=== PATIENT | male | born 1960 | race Caucasian/White ===

== ENCOUNTER → 2017-07-04 | Outpatient (CLI) | payer OTHER ==
[~2017-07-04] MED LIST: OMNIPAQUE 350 MG/ML, 100ML BOTTLE ONE
== END | disposition home or self-care (01) ==
LOC: RAD 15:57
PROVIDERS: ATTEND Student in an Organized Health Care Education/Training Program
DX: R22.1 Localized swelling, mass and lump, neck (principal)
CPT/HCPCS: 36415; 70491; 82565; Q9967

== ENCOUNTER 2018-07-21 09:04 | Emergency (ER) | payer OTHER ==
[~2018-07-21] VITALS: Ht 180.3 cm; Wt 101.6 kg
[2018-07-21 09:15] VITALS: BP 140/76
== END 2018-07-21 10:04 | disposition home or self-care (01) ==
LOC: ED 09:57
DX: E78.5 Hyperlipidemia, unspecified (principal); Z76.0 Encounter for issue of repeat prescription
CPT/HCPCS: 99283

== ENCOUNTER 2019-05-14 11:49 | Emergency (ER) | payer OTHER ==
[~2019-05-14] VITALS: Ht 180.3 cm; Wt 112.4 kg
[2019-05-14 11:51] VITALS: BP 152/70
== END 2019-05-14 13:00 ==
LOC: ED 12:54
DX: M25.511 Pain in right shoulder (principal)
CPT/HCPCS: 99283

== ENCOUNTER 2019-05-21 16:24 | Emergency (ER) | payer OTHER ==
[~2019-05-21] VITALS: Ht 180.3 cm; Wt 110.9 kg
[2019-05-21 16:45] VITALS: BP 153/72
== END 2019-05-21 17:20 | disposition home or self-care (01) ==
LOC: ED 16:55
DX: G89.29 Other chronic pain (principal); M25.511 Pain in right shoulder
CPT/HCPCS: 29105; 96372; 99283; J1885

== ENCOUNTER 2019-08-08 07:05 | Outpatient (CLI) | payer OTHER ==
[~2019-08-08 07:05] MED LIST changes: +LOVA20TA2 PO; -OMNIPAQUE 350 MG/ML, 100ML BOTTLE ONE
== END 2019-08-08 23:59 | disposition home or self-care (01) ==
LOC: CFH 07:05
PROVIDERS: ATTEND Nurse Practitioner Critical Care Medicine
DX: M47.9 Spondylosis, unspecified (principal); M50.20 Other cervical disc displacement, unspecified cervical region; F17.200 Nicotine dependence, unspecified, uncomplicated; M50.30 Other cervical disc degeneration, unspecified cervical region
CPT/HCPCS: 72040; 72141

== ENCOUNTER → 2019-08-24 | Outpatient (CLI) | payer OTHER ==
[~2019-08-24] MED LIST changes: +LOVA10TA PO; +NAPR220C2 PO
[2019-08-24 11:18] LABS: BASOPHILS # (AUTO) 0.07 x10^3/uL (0-0.1); BASOPHILS % (AUTO) 1 % (0-1); EOSINOPHILS # (AUTO) 0.19 x10^3/uL (0-0.4); EOSINOPHILS % (AUTO) 4 % (1-7); LYMPHOCYTES # (AUTO) 1.59 x10^3/uL (1-3.4); LYMPHOCYTES % (AUTO) 31 % (22-44); MD NO; MEAN CORPUSCULAR HEMOGLOBIN 31.6 pg (27.5-34.5); MEAN CORPUSCULAR HGB CONC 33.8 g/dL (33.2-36.2); MEAN CORPUSCULAR VOLUME 93.6 fL (81-97); MEAN PLATELET VOLUME 8.6 fL (7.4-10.4); MONOCYTES # (AUTO) 0.34 x10^3/uL (0.2-0.8); MONOCYTES % (AUTO) 7 % (2-9); NEUTROPHILS # (AUTO) 2.88 x10^3/uL (1.8-6.8); NEUTROPHILS % (AUTO) 57 % (42-75); PLATELET COUNT 179 x10^3/uL (130-400); RED BLOOD COUNT 5.17 x10^6/uL (4.38-5.82); RED CELL DISTRIBUTION WIDTH 13.5 % (9.4-14.8)
[2019-08-24 11:24] LABS: CHLORIDE 111 mmol/L (98-107); INTERNATIONAL NORMALIZED RATIO 0.96 (0.93-1.1); PROTHROMBIN TIME 10.1 Seconds (9.6-11.5)
[2019-08-24 11:29] LABS: ANION GAP 4 mmol/L (5-15); CREATININE 0.94 mg/dL (0.7-1.3)
[2019-08-24 11:33] LABS: CULTURE INDICATED? YES; MICROSCOPIC INDICATED
== END | disposition home or self-care (01) ==
LOC: STAR 10:10
PROVIDERS: ATTEND Neurological Surgery
DX: Z01.818 Encounter for other preprocedural examination (principal); M47.12 Other spondylosis with myelopathy, cervical region; R94.31 Abnormal electrocardiogram [ECG] [EKG]
CPT/HCPCS: 36415; 80048; 81001; 85025; 85610; 85730; 87086; 93005

== ENCOUNTER 2019-09-04 07:59 | Observation (INO) | payer OTHER ==
[~2019-09-04] VITALS: Ht 180.3 cm; Wt 110.8 kg
[~2019-09-04 07:59] MED LIST changes: +BACITRACIN 50,000 UNIT ONE; +BUPIVACAINE/PF 0.5% ONE; +EPINEPHRINE 1 MG/ML, 1ML ONE; +THROMBIN (RECOMBINANT) 5,000 UNIT VIAL TP ONE
[2019-09-04] MEDS ORDERED: ACET-1600 PO (08:31)
[2019-09-04] MEDS ORDERED: LACTATED RINGERS 1,000 ML IV SCH (08:31)
[2019-09-04] MEDS ORDERED: GLYCOPYRROLATE 0.2MG/1ML, 5ML ONE (09:32)
[2019-09-04] MEDS ORDERED: FENTANYL PF 250 MCG/5ML ONE (09:32)
[2019-09-04] MEDS ORDERED: LIDOCAINE 2% 100MG/5ML SYRINGE ONE (09:32)
[2019-09-04] MEDS ORDERED: DEXAMETHASONE 4 MG/ML, 1ML ONE (09:32)
[2019-09-04] MEDS ORDERED: ROCURONIUM 10MG/ML,5ML ONE (09:32)
[2019-09-04] MEDS ORDERED: PROPOFOL 10 MG/ML, 20ML ONE (09:32)
[2019-09-04] MEDS ORDERED: MIDAZOLAM 1 MG/ML, 2ML ONE (09:33)
[2019-09-04] MEDS ORDERED: CEFAZOLIN 1,000 MG ONE (10:41)
[2019-09-04] MEDS ORDERED: PROPOFOL 10 MG/ML, 50ML ONE (10:41)
[2019-09-04] MEDS ORDERED: hydrALAzine 20 MG/ML, 1ML ONE ×2 (10:41→11:35)
[2019-09-04] MEDS ORDERED: HYDROmorphone 1 MG/ML, 1ML INJ IV PRN (12:30)
[2019-09-04] MEDS ORDERED: HYDROcodone/APAP 7.5-325MG/15ML UDC PO PRN (12:30)
[2019-09-04] MEDS ORDERED: METOCLOPRAMIDE 5 MG/ML, 2ML IV PRN (12:30)
[2019-09-04] MEDS ORDERED: MIDAZOLAM 1 MG/ML, 2ML IV PRN (12:30)
[2019-09-04] MEDS ORDERED: LABETALOL 5MG/ML, 20ML IV PRN (12:30)
[2019-09-04] MEDS ORDERED: OXYcodone 5 MG/5 ML ORAL.SOL UDC PO PRN (12:30)
[2019-09-04] MEDS ORDERED: KETOROLAC 30 MG/1 ML IV PRN (12:30)
[2019-09-04] MEDS ORDERED: ONDANSETRON 2MG/ML, 2ML IVPush PRN ×2 (12:30→14:00)
[2019-09-04] MEDS ORDERED: MEPERIDINE/PF 25MG/0.5ML IVPush PRN (12:30)
[2019-09-04] MEDS ORDERED: EPHEDRINE 50 MG/ML, 1ML ONE (13:32)
[2019-09-04] MEDS ORDERED: FENTANYL PF 100 MCG/2ML ONE ×2 (13:32→14:27)
[2019-09-04] MEDS ORDERED: HYDROcodone/APAP 10/325 MG TABLET PO PRN (14:00)
[2019-09-04] MEDS ORDERED: DIPHENHYDRAMINE 50 MG CAPSULE PO PRN (14:00)
[2019-09-04] MEDS ORDERED: HYDROmorphone 2MG TABLET PO PRN (14:00)
[2019-09-04] MEDS ORDERED: MAGNESIUM HYDROXIDE 8%, 30ML UDC PO PRN (14:00)
[2019-09-04] MEDS ORDERED: SENNA/DOCUSATE TABLET PO PRN (14:00)
[2019-09-04] MEDS ORDERED: PROMETHAZINE 25 MG/ML, 1ML IM PRN (14:00)
[2019-09-04] MEDS ORDERED: BISACODYL 10 MG SUPP PR PRN (14:00)
[2019-09-04] MEDS ORDERED: PHARMACY MAY ADJ FOR RENAL FX MC PRN (14:00)
[2019-09-04] MEDS ORDERED: CYCLOBENZAPRINE 10 MG TABLET PO PRN (14:00)
[2019-09-04] MEDS ORDERED: OXYcodone 5 MG/5 ML ORAL.SOL UDC ONE (14:19)
[2019-09-04] MEDS: FENTANYL PF 100 MCG/2ML IV PRN ×2 (14:21→14:46)
[2019-09-04] MEDS ORDERED: HYDROmorphone 1 MG/ML, 1ML VIAL ONE (14:48)
[2019-09-04 18:30] VITALS: BP 145/83
[2019-09-04] MEDS: CEFAZOLIN PMX 1GM/50ML 50 ML IVPB SCH (18:40)
[2019-09-04] MEDS: NS + 20MEQ KCL 1,000 ML IV SCH (18:41)
[2019-09-04] MEDS: HYDROcodone/APAP 5/325 TABLET PO PRN (20:27)
[2019-09-04] MEDS: SODIUM CHLORIDE FLUSH 10ML SYR IVF SCH (20:32)
[2019-09-04] MEDS ORDERED: LOVASTATIN 10 MG TABLET PO SCH (21:00)
[2019-09-04 23:58] VITALS: BP 138/75
[2019-09-05] MEDS: HYDROcodone/APAP 5/325 TABLET PO PRN ×3 (01:22→12:14)
[2019-09-05 03:30] VITALS: BP 132/73
[2019-09-05] MEDS: CEFAZOLIN PMX 1GM/50ML 50 ML IVPB SCH (03:46)
[2019-09-05 07:08] VITALS: BP 129/74
[2019-09-05] MEDS: SODIUM CHLORIDE FLUSH 10ML SYR IVF SCH (09:59)
[2019-09-05] MEDS: NS + 20MEQ KCL 1,000 ML IV SCH ×2 (10:05)
[2019-09-05 12:17] VITALS: BP 130/69
== END 2019-09-05 13:19 | disposition home or self-care (01) ==
LOC: INTOOBSV 07:59 → ORIP 07:59 → 4NE 15:25 → DCLOUNGE 09-05 13:04
PROVIDERS: ADMIT Neurological Surgery; ATTEND Neurological Surgery
DX: M47.12 Other spondylosis with myelopathy, cervical region (principal); M48.02 Spinal stenosis, cervical region; Z79.899 Other long term (current) drug therapy
CPT/HCPCS: 20930; 20937; 22551; 22552; 22853; 36415; 72040; 86850; 86900; 95938; 95941; 96365; 96366; 97161; 97165; C1713; C1762; G0378; J0171; J0360; J0690; J1100; J1170; J2250; J2704; J3010; J3480; J7120; S0020

== ENCOUNTER 2019-10-15 09:08 | Outpatient (CLI) | payer OTHER ==
[~2019-10-15 09:08] MED LIST changes: +ACET-1600 PO; -BACITRACIN 50,000 UNIT ONE; -BUPIVACAINE/PF 0.5% ONE; -EPINEPHRINE 1 MG/ML, 1ML ONE; -THROMBIN (RECOMBINANT) 5,000 UNIT VIAL TP ONE
== END 2019-10-15 23:59 | disposition home or self-care (01) ==
LOC: RAD 09:08
PROVIDERS: ATTEND Nurse Practitioner Critical Care Medicine
DX: M48.02 Spinal stenosis, cervical region (principal); E78.00 Pure hypercholesterolemia, unspecified; M43.22 Fusion of spine, cervical region; M54.12 Radiculopathy, cervical region; Z98.890 Other specified postprocedural states
CPT/HCPCS: 72040

== ENCOUNTER 2020-08-31 14:33 | Emergency (ER) | payer OTHER ==
[~2020-08-31] VITALS: Ht 180.3 cm; Wt 109.2 kg
[2020-08-31 14:36] VITALS: BP 129/51
--- NOTE | 2020-08-31 15:19 | NUR ---
pt walked back to room. sts he has no complaints and wants to leave.as
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
== END 2020-08-31 16:01 | disposition home or self-care (01) ==
LOC: ED 16:00
DX: M79.642 Pain in left hand (principal); M25.562 Pain in left knee; E78.5 Hyperlipidemia, unspecified; V49.49XA Driver injured in collision with other motor vehicles in traffic accident, initial encounter; Y93.89 Activity, other specified; Y92.410 Unspecified street and highway as the place of occurrence of the external cause; Y99.8 Other external cause status
CPT/HCPCS: 99281

== ENCOUNTER 2020-09-24 21:40 | Emergency (ER) | payer OTHER ==
[~2020-09-24] VITALS: Ht 180.3 cm; Wt 111.4 kg
[2020-09-24] MEDS ORDERED: FAMOTIDINE 20 MG TABLET ONE (22:00)
[2020-09-24] MEDS ORDERED: FAMOTIDINE 20 MG TABLET PO ONE (22:00)
[2020-09-24] MEDS ORDERED: hydrOXyzine 50MG TABLET ONE (22:01)
--- NOTE | 2020-09-24 22:07 | NUR ---
PT STATES ABOUT AN HOUR AGO HE STARTED NOTICING SOME SWELLING AROUND HIS LIPS AND FINGERS. PT STATES HE IS NOT ALLERGIC TO ANYTHING AND DID NOT TRY ANY NEW FOODS OR GO ANYWHERE NEW WITHIN THE PAST COUPLE DAYS. PT'S RESP ARE EVEN AND UNLABORED, PT DENIES SOB OR DIFFICULTY SWALLOWING, PT MEDICATED PER EMAR, PLACED ON MONITORS AND CALL LIGHT WITHIN REACH
--- NOTE | 2020-09-24 22:48 | NUR ---
PT STATES NO MORE ITCHING. THE SWELLING IS STILL THERE AROUND LIPS, WILL CONTINUE TO MONITOR
[2020-09-24 23:20] VITALS: BP 110/65
== END 2020-09-24 23:29 | disposition home or self-care (01) ==
LOC: ED 22:57
DX: T78.3XXA Angioneurotic edema, initial encounter (principal); E78.5 Hyperlipidemia, unspecified
CPT/HCPCS: 99284; J7512; Q0177